=== PATIENT | female | born 1960 | race Caucasian/White ===

== ENCOUNTER 2017-08-28 19:51 | Emergency (ER) | payer OTHER ==
[~2017-08-28] VITALS: Ht 172.7 cm; Wt 99.2 kg
[~2017-08-28 19:51] MED LIST: ALBUTEROL SULF8.5 GM IH; AMBIEN5 MG PO; Ambien PO; Aspirin Chewable PO; COMPAZINE10 MG PO; Concerta PO; DECADRON4 MG PO; Desyrel PO; EFFEXOR XR150 MG PO; EFFEXOR XR75 MG PO; FLONASE16 G1 BOTH NARES; FLOVENT 11120 INHALA IH; LEVAQUIN500 MG PO; LORATADINE10 M2 PO; METADATE CD10 MG PO; METADATE CD30 MG PO; METHYLPHENIDATE30 M2 PO; METHYLPREDNISOL32 MG PO; MULTIPLE VITAM1 EACH PO; PROVENTIL HFA6.7 GM IH; Percocet 5/325,Endoc PO; Proventil,Ventolin H IH; Slow Fe PO; THERAGRAN1 TABLET PO; TRAZODONE HCL150 MG PO; VENTOLIN HFA18 GM IH
[2017-08-28 20:14] LABS: HEMATOCRIT 26.4 % (36.0-46.0); HEMOGLOBIN 8.7 G/DL (11.9-15.5); MCH 28.8 PG (29.0-34.0); MCV 87.4 FL (83-99); PLATELET COUNT 296 K/uL (156-360); RBC DIS.WIDTH-CV 15.8 % (11.8-14.6); RBC DIS.WIDTH-SD 50.8 % (39-53); RED BLOOD COUNT 3.02 M/uL (3.80-5.20)
[2017-08-28 20:31] LABS: ALBUMIN 3.1 g/dL (3.2-4.8); CHLORIDE 102 mEq/L (99-109); POTASSIUM 3.8 mEq/L (3.7-5.4); SODIUM 134 mEq/L (136-147)
[2017-08-28 20:33] LABS: GLUCOSE 111 mg/dL (70-99); TOTAL PROTEIN 6.4 g/dL (6.4-8.3)
[2017-08-28 20:35] LABS: TOTAL BILIRUBIN 0.4 mg/dL (0.0-1.0)
[2017-08-28 20:37] LABS: ALKALINE PHOSPHATASE 75 IU/L (3-129); CREATININE 0.7 mg/dL (0.6-1.3); GFR ESTIMATE (CALCULATED) > 59 mL/min/
[2017-08-28 20:38] LABS: UREA NITROGEN (BUN) 10 mg/dL (9-23)
[2017-08-28 20:39] LABS: AST (GOT) 22 IU/L (2-34)
[2017-08-28 20:40] LABS: ALT (GPT) 10 IU/L (3-49)
[2017-08-28 21:01] LABS: TROP-I INTERPRETATION NEGATIVE; TROPONIN-I < 0.01 ng/mL (0.0-0.30)
[2017-08-28 21:22] LABS: APPEARANCE TURBID ((CLEAR)); BILIRUBIN NEGATIVE; BLOOD NEGATIVE; COLOR YELLOW ((YELLOW)); GLUCOSE (STRIP) NEGATIVE; KETONES NEGATIVE; LEUKOCYTES LARGE; NITRITE NEGATIVE; PROTEIN (STRIP) 30; SPECIFIC GRAVITY 1.019 (1.000-1.030)
[2017-08-28 21:34] LABS: EPITHELIAL CELLS 1+ /HPF; MUCUS TRACE /LPF; UCUL ADDED? YES
[2017-08-28 22:18] LABS: BACTERIA 1+ /HPF; WHITE BLOOD CELLS 20-30 /HPF (0-5)
[2017-08-28 22:19] LABS: AMORPHOUS PHOSPHATE CRYSTALS 3+
[2017-08-28] MEDS ORDERED: ZOFRAN ODT4 MG PO (22:37)
[2017-08-28 23:16] VITALS: BP 136/76
== END 2017-08-28 23:17 | disposition home or self-care (01) ==
LOC: EME → EDBD 19:51 → EME 19:51
PROVIDERS: Emergency Medicine
DX: R06.02 Shortness of breath (principal); R13.10 Dysphagia, unspecified; Z90.2 Acquired absence of lung [part of]; J45.909 Unspecified asthma, uncomplicated; F32.9 Major depressive disorder, single episode, unspecified; F41.9 Anxiety disorder, unspecified; Z87.891 Personal history of nicotine dependence; Z88.8 Allergy status to other drugs, medicaments and biological substances
CPT/HCPCS: 71046; 80053; 81003; 83880; 84484; 85027; 87086; 99281; 99285

== ENCOUNTER → 2017-11-04 | Outpatient (CLI) | payer OTHER ==
[~2017-11-04] MED LIST changes: +LOPRESSOR25 MG PO; +ZOFRAN ODT4 MG PO
[2017-11-04 12:20] LABS: TYPE OF FLUID PLEURAL
[2017-11-04 13:07] LABS: BODY FLUID LDH 359 IU/L
[2017-11-04 13:58] LABS: APPEARANCE HAZY-DK. YELLOW; BODY FLUID EOSINOPHILS 0 % (0-25); BODY FLUID RBC'S 118000 /MM^3 (0-100); BODY FLUID WBC'S 159 /MM^3 (0-500); MONONUCLEAR WBC'S 99 %; POLYNUCLEAR WBC'S 1 % (0-25)
== END | disposition home or self-care (01) ==
LOC: RAD 10-21 13:00 → EDSTATUS 11-02 11:00 → RAD 11-02 11:00
PROVIDERS: Internal Medicine Cardiovascular Disease
PROC: 0W9B3ZX Drainage of Left Pleural Cavity, Percutaneous Approach, Diagnostic (ICD-10-PCS; principal; 2017-11-04)
DX: J90 Pleural effusion, not elsewhere classified (principal)
CPT/HCPCS: 76942; 83615 91; 89051